=== PATIENT | male | born 1985 | race Caucasian/White ===

== ENCOUNTER 2023-03-22 05:41 | Emergency (ER) | payer OTHER ==
[~2023-03-22] VITALS: Ht 177.8 cm; Wt 68.0 kg
[2023-03-22] MEDS ORDERED: NALOXONE HCL 0.4 MG/ML AMPUL ONE (05:52)
[2023-03-22] MEDS ORDERED: IV NS 0.9% 1,000 ML BAG IV ONE (06:00)
[2023-03-22] MEDS ORDERED: NALOXONE HCL 0.4 MG/ML AMPUL IV ONE (06:00)
[2023-03-22 06:17] LABS: BASOPHILS % (AUTO) 0.5 % (0.0-2.0); EOSINOPHILS # (AUTO) 0.1 K/uL (0.0-0.7); EOSINOPHILS % (AUTO) 1.8 % (0.0-6.0); HEMATOCRIT 41 % (39-51); HEMOGLOBIN 13.9 g/dL (13.5-17.5); LYMPHOCYTES # (AUTO) 1.5 K/uL (0.8-4.8); LYMPHOCYTES % (AUTO) 19.9 % (20.0-44.0); MEAN CORPUSCULAR HEMOGLOBIN 29 PG (26.0-33.0); MEAN CORPUSCULAR HGB CONC 34 g/dl (31.0-36.0); MEAN CORPUSCULAR VOLUME 86 fL (80-96); MONOCYTES # (AUTO) 0.4 K/uL (0.1-1.30); MONOCYTES % (AUTO) 5.8 % (2.0-12.0); NEUTROPHILS # (AUTO) 5.3 K/uL (1.8-8.9); PLATELET COUNT (AUTO) 219 K/uL (150-450); RED BLOOD CELL COUNT(AUTO) 4.79 MIL/uL (4.5-6.0); RED CELL DISTRIBUTION WIDTH 13.5 % (11.5-15.0); WHITE BLOOD COUNT (AUTO) 7.3 K/uL (4.3-11.0)
[2023-03-22 06:31] LABS: CALCIUM, SERUM 8.8 mg/dL (8.5-10.1); CARBON DIOXIDE 23 mmol/L (21-32); CHLORIDE 102 mmol/L (98-107); CREATININE 0.8 mg/dL (0.6-1.3); GLUCOSE 126 mg/dL (74-106); POTASSIUM 4.3 mmol/L (3.5-5.1); SODIUM SERUM 135 mmol/L (136-145); UREA NITROGEN, BLOOD 20 mg/dL (7-18)
[2023-03-22 06:38] LABS: ALANINE AMINOTRANSFERASE 30 U/L (12-78); ALBUMIN 3.8 g/dL (3.4-5.0); ALCOHOL, BLOOD < 3 mg/dL (0-10); ALKALINE PHOSPHATASE 88 U/L (46-116); ASPARTATE AMINOTRANSFERASE 29 U/L (15-37); BILIRUBIN,DIRECT 0.1 mg/dL (0.0-0.2); BILIRUBIN,TOTAL 0.4 mg/dL (0.2-1.0); TOTAL PROTEIN, SERUM 7.9 g/dL (6.4-8.2)
[2023-03-22 06:45] LABS: ACETAMINOPHEN <10 ug/ml (10-30); SALICYLATE 1.4 mg/dL (2.8-20.0); THYROID STIMULATING HORMONE 1.361 uIU/mL (0.358-3.74)
[2023-03-22] MEDS ORDERED: ONDANSETRON HCL/PF 4 MG/2 ML VIAL ONE (06:52)
[2023-03-22] MEDS ORDERED: ONDANSETRON HCL/PF 4 MG/2 ML VIAL IV ONE (07:00)
[2023-03-22 07:37] LABS: APPEARANCE,URINE CLEAR (CLEAR); BILIRUBIN,URINE NEGATIVE (NEGATIVE); BLOOD, URINE NEGATIVE Ery/uL (NEGATIVE); COLOR,URINE YELLOW (YELLOW); KETONES,URINE TRACE mg/dL (NEGATIVE); LEUKOCYTE ESTERASE ,URINE NEGATIVE (NEGATIVE); NITRITE, URINE NEGATIVE (NEGATIVE); PROTEIN,URINE NEGATIVE (NEGATIVE); UGLUCOSE NEGATIVE (NEGATIVE); UROBILINOGEN,URINE 0.2 EU/dL (0.2)
[2023-03-22 07:53] LABS: BARBITURATE, URINE NEGATIVE (NEGATIVE); BENZODIAZEPINE, URINE NEGATIVE (NEGATIVE); CANNABINOID, URINE NEGATIVE (NEGATIVE); COCCAINE, URINE NEGATIVE (NEGATIVE); OPIATE, URINE NEGATIVE (NEGATIVE); PHENCYCLIDINE SCREEN,URINE NEGATIVE (NEGATIVE)
[2023-03-22 08:00] LABS: AMPHETAMINE, URINE POSITIVE (NEGATIVE)
[2023-03-22] MEDS ORDERED: NALO4SPR BNOSTRILS (12:10)
[2023-03-22 12:43] VITALS: BP 140/95; TEMP 98.7; O2SAT 98
== END 2023-03-22 12:43 | disposition home or self-care (01) ==
LOC: ER 05:51
DX: F15.10 Other stimulant abuse, uncomplicated (principal); R40.4 Transient alteration of awareness
CPT/HCPCS: 99285; 96374; 96361; 96375; 93005; 71045; 70450; 85025; 80048; 87086; 80076; 81003; 36415; 84443; 84484; 82962; 80143; 80320; 80307; J2310; J2405; J7030; G0480